=== PATIENT | female | born 1975 | race Hispanic/Latino ===

== ENCOUNTER → 2017-01-22 | Outpatient (CLI) | payer OTHER ==
[~2017-01-22] MED LIST: HYDR-3583 PO; IBUP-30 PO
--- NOTE | 2017-01-24 19:33 | Diagnostic Imaging Report ---
EXAMINATION: Bilateral digital screening mammogram with CAD. The current study was also evaluated with a Computer Aided Detection (CAD) system. INDICATION: Screening. No current complaints stated on the questionnaire. COMPARISON: 05/25/08. FINDINGS: The breasts are composed of heterogeneously dense parenchyma which may decrease mammographic sensitivity. In the medial aspect of the right breast is an oval nodule which appears to be present on the 2008 exam, compatible with benign etiology. The left breast demonstrates no focal mass, architectural distortion or suspicious calcification. IMPRESSION: Stable mammographic findings with no suspicious findings. ACR BI-RADS Category 2: Benign findings. Result letter will be mailed to the patient. Note: At least 10% of breast cancer is not imaged by mammography. Dictated by: Dictated on workstation # [id number]
== END ==
LOC: RAD 08:42
PROVIDERS: ATTEND Nurse Practitioner Family
DX: Z12.31 Encounter for screening mammogram for malignant neoplasm of breast (principal)
CPT/HCPCS: 77067